=== PATIENT | male | born 1935 | race African-American/Black ===

== ENCOUNTER 2016-08-25 06:29 | Emergency (ER) | payer OTHER ==
[~2016-08-25] VITALS: Ht 188 cm; Wt 131.0 kg
[~2016-08-25 06:29] MED LIST: AMLO10TA80 PO; ASPI-1159 PO; ATOR10TA69 PO; CARV6.2548 PO; CLOP75TA33 PO; FURO20TA4 PO; HYDR-4135 PO; ISOS30TA6 PO; LISI40TA4 PO; TERA5CAP4 PO; WARF5TAB73 PO
[2016-08-25] MEDS ORDERED: DEXT 5% WATER 500 ML IV ONE (07:00)
[2016-08-25 07:27] LABS: BASOPHILS % 0.4 % (0.0-2.0); EOSINOPHILS % 5.5 % (0.0-5.0); HEMATOCRIT. 27.7 % (42.0-52.0); HEMOGLOBIN. 8.9 g/dL (14.0-18.0); LYMPHOCYTES % 22.2 % (20.0-50.0); MEAN CORPUSCULAR HEMOGLOBIN 28.2 pg (28.0-32.0); MEAN CORPUSCULAR VOLUME 87.3 fL (80.0-94.0); MEAN PLATELET VOLUME 8.6 fl (7.4-10.4); MONOCYTES % 7.4 % (2.0-8.0); NEUTROPHILS % 64.5 % (40.0-76.0); PLATELET 240 x1000/uL (130-400); RED BLOOD CELL COUNT 3.17 mill/uL (4.7-6.1); RED CELL DISTRIBUTION WIDTH 16.1 % (11.6-14.6)
[2016-08-25 07:34] LABS: INR 2.7; PARTIAL THROMBOPLASTIN TIME 39.7 sec (24.0-34.0); PROTHROMBIN TIME 27.8 sec
[2016-08-25 07:41] LABS: CARBON DIOXIDE 26 mEq/L (21-32); CHLORIDE 110 mEq/L (98-107); TROPONIN I 0.03 ng/mL (0.00-0.04)
[2016-08-25 08:47] LABS: CLARITY URINE CLEAR (CLEAR); COLOR URINE YELLOW (YELLOW); GLUCOSE URINE NEGATIVE (NEGATIVE); KETONES URINE NEGATIVE (NEGATIVE); LEUKOCYTE ESTERASE URINE TRACE (NEGATIVE); NITRITE URINE NEGATIVE (NEGATIVE); OCCULT BLOOD URINE NEGATIVE (NEGATIVE); PH URINE 5.5 (4.5-8.0); PROTEIN URINE 2+ (NEGATIVE); SPECIFIC GRAVITY URINE 1.016 (1.005-1.030); UROBILINOGEN URINE 0.2 E.U./dL (0.2-1.0)
[2016-08-25 12:43] VITALS: BP 126/81
== END 2016-08-25 13:35 | disposition short-term general hospital (02) ==
LOC: ER 06:30
DX: E11.649 Type 2 diabetes mellitus with hypoglycemia without coma (principal); I10 Essential (primary) hypertension; I44.0 Atrioventricular block, first degree; I49.1 Atrial premature depolarization; I69.354 Hemiplegia and hemiparesis following cerebral infarction affecting left non-dominant side; Z79.84 Long term (current) use of oral hypoglycemic drugs; Z79.01 Long term (current) use of anticoagulants; Z79.82 Long term (current) use of aspirin
CPT/HCPCS: 36415; 71010; 80053; 81001; 82962; 84484; 85025; 85610; 85730; 93005; 96360; 96361; 99285; J7060

== ENCOUNTER 2017-05-03 11:07 | Inpatient (IN) | payer OTHER ==
[2017-05-03] VITALS (8 sets, daily range): BP systolic 132–145; BP diastolic 65–82
[~2017-05-03] VITALS: Ht 182.9 cm; Wt 104.5 kg
[2017-05-03] MEDS ORDERED: SODIUM CHLORIDE 0.9% 1,000 ML IV ONE (11:34)
[2017-05-03] MEDS ORDERED: ONDANSETRON HCL 4MG/2ML VIAL IV ONE (11:45)
[2017-05-03 12:01] LABS: HEMOGLOBIN. 9.7 g/dL (14.0-18.0); MEAN CORPUSCULAR HEMOGLOBIN 29.4 pg (28.0-32.0); MEAN CORPUSCULAR VOLUME 90.5 fL (80.0-94.0); MEAN PLATELET VOLUME 8.8 fl (7.4-10.4); PLATELET 154 x1000/uL (130-400); RED BLOOD CELL COUNT 3.31 mill/uL (4.7-6.1); RED CELL DISTRIBUTION WIDTH 15.4 % (11.6-14.6)
[2017-05-03 12:11] LABS: CHLORIDE 108 mEq/L (98-107)
[2017-05-03 13:01] LABS: KETONES URINE NEGATIVE (NEGATIVE); LEUKOCYTE ESTERASE URINE 3+ (NEGATIVE); NITRITE URINE NEGATIVE (NEGATIVE); OCCULT BLOOD URINE 1+ (NEGATIVE); PH URINE 8.5 (4.5-8.0); PROTEIN URINE 3+ (NEGATIVE); SPECIFIC GRAVITY URINE 1.019 (1.005-1.030)
[2017-05-03 13:12] LABS: CLARITY URINE CLOUDY (CLEAR); COLOR URINE YELLOW (YELLOW)
[2017-05-03] MEDS ORDERED: POTASSIUM CHLORIDE 20MEQ TABLET SR PO ONE (13:15)
[2017-05-03] MEDS ORDERED: ASPIRIN 325MG EC TABLET PO ONE (13:15)
[2017-05-03] MEDS ORDERED: LEVOFLOXACIN 750MG PREMIX 150 ML IV ONE (13:15)
[2017-05-03] MEDS ORDERED: SODIUM CHLORIDE 0.9% 1000ML BAG (SEPSIS BOLUS) IV ONE (13:15)
[2017-05-03 14:11] LABS: PLATELET ESTIMATE NORMAL
[2017-05-03] MEDS ORDERED: diltiazem PO (16:10)
[2017-05-03] MEDS ORDERED: CARV12.545 PO (16:10)
[2017-05-03] MEDS ORDERED: OMEP20TA2 PO (16:10)
[2017-05-03] MEDS ORDERED: GLIP5TAB12 PO (16:13)
[2017-05-03] MEDS ORDERED: ISOS10TA2 GT (16:14)
[2017-05-03] MEDS ORDERED: SODIUM CHLORIDE 0.45% 1,000 ML IV SCH (16:38)
[2017-05-03] MEDS ORDERED: MAGNESIUM/ALUMINUM HYDROXIDE/SIMETHICONE 30ML UDC PO PRN (16:45)
[2017-05-03] MEDS ORDERED: ACETAMINOPHEN 650MG/20.3ML UDC GT PRN (16:45)
[2017-05-03] MEDS ORDERED: ACETAMINOPHEN 325MG TABLET PO PRN (16:45)
[2017-05-03] MEDS ORDERED: IPRATROPIUM/ALBUTEROL 0.5-3(2.5)MG/3ML NEB INH PRN (16:45)
[2017-05-03] MEDS ORDERED: DIPHENHYDRAMINE 50MG/ML VIAL IV PRN (16:45)
[2017-05-03] MEDS ORDERED: NA PHOS,M-B/NA PHOS,DI-BA ENEMA 118ML PR PRN (16:45)
[2017-05-03] MEDS ORDERED: GUAIFENESIN 200MG/10ML SUGAR FREE UDC PO PRN (16:45)
[2017-05-03] MEDS ORDERED: ACETAMINOPHEN 650MG SUPP PR PRN (16:45)
[2017-05-03] MEDS ORDERED: ONDANSETRON HCL 4MG/2ML VIAL IV PRN (16:45)
[2017-05-03] MEDS ORDERED: CLONIDINE 0.1MG TABLET PO PRN (16:45)
[2017-05-03] MEDS ORDERED: DOCUSATE SODIUM 100MG CAPSULE PO PRN (16:45)
[2017-05-03] MEDS ORDERED: HYDROCODONE/ACETAMINOPHEN 5/325MG TABLET PO PRN (16:45)
[2017-05-03] MEDS: INSULIN LISPRO 100 UNITS/ML SUBCUT SCH ×2 (17:20→20:23)
[2017-05-03] MEDS: BLOOD SUGAR DIAGNOSTIC STRIP TEST SCH ×2 (17:42→20:22)
[2017-05-03] MEDS: DEXTROSE 50% WATER 50ML SYRINGE IV PRN ×2 (17:45→21:00)
[2017-05-03] MEDS: DEXT 5%/0.45% NACL 1000ML 1,000 ML IV SCH (20:56)
[2017-05-03] MEDS ORDERED: ENOXAPARIN 40MG/0.4ML SYR SUBCUT SCH (21:00)
[2017-05-03] MEDS ORDERED: SORBITOL 70% SOLN 30ML PO NR (21:00)
[2017-05-03] MEDS ORDERED: ENOXAPARIN 60MG/0.6ML SYR SUBCUT NR (21:30)
[2017-05-03] MEDS ORDERED: CEFTRIAXONE 1 G PREMIX 50 ML IV SCH (22:00)
[2017-05-03 22:23] LABS: PARTIAL THROMBOPLASTIN TIME 65.1 sec (23.4-31.0)
[2017-05-03 22:30] LABS: PROTHROMBIN TIME 93.1 sec (9.4-11.6)
[2017-05-03 22:46] LABS: TROPONIN I 4.6 ng/mL (0.00-0.04)
[2017-05-03] MEDS: SODIUM CHLORIDE 0.9% INJ 3ML FLUSH IVF SCH (23:13)
[2017-05-03] MEDS ORDERED: PHYTONADIONE 10MG/ML AMP SUBCUT NR (23:30)
[2017-05-04] VITALS (15 sets, daily range): BP systolic 100–149; BP diastolic 29–89
[2017-05-04] MEDS: BLOOD SUGAR DIAGNOSTIC STRIP TEST SCH ×4 (06:08→20:04)
[2017-05-04] MEDS: SODIUM CHLORIDE 0.9% INJ 3ML FLUSH IVF SCH ×2 (06:09→13:05)
[2017-05-04 06:45] LABS: BASOPHILS % 0.2 % (0.0-2.0); EOSINOPHILS % 1.5 % (0.0-5.0); HEMATOCRIT. 25.2 % (42.0-52.0); HEMOGLOBIN. 8.9 g/dL (14.0-18.0); LYMPHOCYTES % 8.8 % (20.0-50.0); MEAN CORPUSCULAR HEMOGLOBIN 34.3 pg (28.0-32.0); MEAN CORPUSCULAR VOLUME 97.3 fL (80.0-94.0); NEUTROPHILS % 85.5 % (40.0-76.0); PLATELET 142 x1000/uL (130-400); RED BLOOD CELL COUNT 2.59 mill/uL (4.7-6.1); RED CELL DISTRIBUTION WIDTH 15.6 % (11.6-14.6)
[2017-05-04] MEDS: INSULIN LISPRO 100 UNITS/ML SUBCUT SCH ×3 (07:20→16:56)
[2017-05-04 07:59] LABS: CHLORIDE 109 mEq/L (98-107)
[2017-05-04 08:23] LABS: CREATINE KINASE 203 IU/L (39-308); CREATINE KINASE MB FRACTION 3.8 ng/mL (0.5-3.6); HDL CHOLESTEROL 8 mg/dL (40-59); LDL CHOLESTEROL 36 mg/dL (5-100)
[2017-05-04] MEDS ORDERED: ASPIRIN 81MG EC TABLET PO SCH (09:00)
[2017-05-04] MEDS ORDERED: SORBITOL 70% SOLN 30ML PO NR (10:30)
[2017-05-04] MEDS ORDERED: DOCUSATE SODIUM 250MG CAPSULE PO SCH (10:30)
[2017-05-04] MEDS: DEXT 5%/0.45% NACL 1000ML 1,000 ML IV SCH (12:29)
[2017-05-04 12:44] LABS: PARTIAL THROMBOPLASTIN TIME 63.7 sec (23.4-31.0)
[2017-05-04 12:51] LABS: PROTHROMBIN TIME 97.7 sec (9.4-11.6)
[2017-05-04 13:02] LABS: INR 9.4
[2017-05-04] MEDS ORDERED: PHYTONADIONE 10MG/ML AMP SUBCUT NR (13:15)
[2017-05-04] MEDS ORDERED: POTASSIUM CHLORIDE 20MEQ TABLET SR PO SCH (13:15)
[2017-05-04] MEDS ORDERED: ENOXAPARIN 100MG/ML SYR SUBCUT SCH (21:00)
== END 2017-05-04 20:36 | disposition short-term general hospital (02) | DRG 280 ==
LOC: ER 11:07 → 3WST 13:10 → EDBEDREQ 13:58 → ENRESERV 14:40
PROVIDERS: ADMIT Family Medicine; ATTEND Family Medicine
DX: I21.4 Non-ST elevation (NSTEMI) myocardial infarction (principal); E43 Unspecified severe protein-calorie malnutrition; N17.9 Acute kidney failure, unspecified; N39.0 Urinary tract infection, site not specified; E11.22 Type 2 diabetes mellitus with diabetic chronic kidney disease; E11.649 Type 2 diabetes mellitus with hypoglycemia without coma; I25.10 Atherosclerotic heart disease of native coronary artery without angina pectoris; I13.10 Hypertensive heart and chronic kidney disease without heart failure, with stage 1 through stage 4 chronic kidney disease, or unspecified chronic kidney disease; N18.9 Chronic kidney disease, unspecified; R13.10 Dysphagia, unspecified; Z79.82 Long term (current) use of aspirin; I69.30 Unspecified sequelae of cerebral infarction; I25.2 Old myocardial infarction; Z79.899 Other long term (current) drug therapy
CPT/HCPCS: 36415; 71045; 76700; 80053; 80061; 81003; 82550; 82553; 82962; 83605; 84484; 85025; 85610; 85730; 87040; 87086; 87186; 93005; 96361; 96365; 96375; 99291; J0696; J1650; J1956; J2405; J3430; J3490; J7030; J7050

== ENCOUNTER 2017-05-16 02:59 | Inpatient (IN) | payer OTHER ==
[2017-05-16] VITALS (14 sets, daily range): BP systolic 97–132; BP diastolic 47–71
[~2017-05-16] VITALS: Ht 182.9 cm; Wt 104.4 kg
[~2017-05-16 02:59] MED LIST changes: +CARV12.545 PO; +GLIP5TAB12 PO; +ISOS10TA2 GT; +OMEP20TA2 PO; +WARF-53 PO; -WARF5TAB73 PO; +diltiazem PO
[2017-05-16] MEDS ORDERED: SODIUM CHLORIDE 0.9% 1,000 ML IV ONE (03:40)
[2017-05-16] MEDS ORDERED: ACETAMINOPHEN 325MG TABLET GT STA (03:40)
[2017-05-16] MEDS ORDERED: LEVOFLOXACIN 750MG PREMIX 150 ML IV ONE (03:45)
[2017-05-16 04:09] LABS: HEMATOCRIT. 25.7 % (42.0-52.0); HEMOGLOBIN. 8.5 g/dL (14.0-18.0); MEAN CORPUSCULAR HEMOGLOBIN 29.6 pg (28.0-32.0); MEAN CORPUSCULAR VOLUME 89.5 fL (80.0-94.0); MEAN PLATELET VOLUME 8.5 fl (7.4-10.4); PLATELET 475 x1000/uL (130-400); RED BLOOD CELL COUNT 2.87 mill/uL (4.7-6.1); RED CELL DISTRIBUTION WIDTH 15.4 % (11.6-14.6)
[2017-05-16 04:22] LABS: CHLORIDE 109 mEq/L (98-107)
[2017-05-16 04:41] LABS: ATYPICAL LYMPHOCYTES 1; PLATELET ESTIMATE SLIGHTLY INCREASED
[2017-05-16] MEDS ORDERED: SODIUM CHLORIDE 0.9% 1,000 ML IV SCH (06:33)
[2017-05-16] MEDS ORDERED: ACETAMINOPHEN 650MG/20.3ML UDC GT PRN (08:45)
[2017-05-16] MEDS ORDERED: ACETAMINOPHEN 650MG SUPP PR PRN (08:45)
[2017-05-16] MEDS ORDERED: ONDANSETRON HCL 4MG/2ML VIAL IV PRN (08:45)
[2017-05-16] MEDS ORDERED: LEVOFLOXACIN 500MG PREMIX 100 ML IV SCH (08:45)
[2017-05-16] MEDS ORDERED: MAGNESIUM/ALUMINUM HYDROXIDE/SIMETHICONE 30ML UDC PO PRN (08:45)
[2017-05-16] MEDS ORDERED: DIPHENHYDRAMINE 50MG/ML VIAL IV PRN (08:45)
[2017-05-16] MEDS ORDERED: CLONIDINE 0.1MG TABLET PO PRN (08:45)
[2017-05-16] MEDS ORDERED: ACETAMINOPHEN 325MG TABLET PO PRN (08:45)
[2017-05-16] MEDS ORDERED: ASPIRIN 81MG EC TABLET PO SCH (09:00)
[2017-05-16] MEDS ORDERED: IPRATROPIUM/ALBUTEROL 0.5-3(2.5)MG/3ML NEB HHN NR (10:30)
[2017-05-16] MEDS ORDERED: NA PHOS,M-B/NA PHOS,DI-BA ENEMA 118ML PR PRN (11:00)
[2017-05-16] MEDS ORDERED: IPRATROPIUM/ALBUTEROL 0.5-3(2.5)MG/3ML NEB INH PRN (11:00)
[2017-05-16] MEDS ORDERED: DOCUSATE SODIUM 100MG CAPSULE PO PRN (11:00)
[2017-05-16 12:03] LABS: BG BASE EXCESS -4.5 mmol/L (-2.0-2.0); BG CARBOXYHEMOGLOBIN 0.6 % (0.5-1.5); BG DEOXYHEMOGLOBIN 1.1 % (0.0-5.0); BG FRACTION INSPIRED OXYGEN 30; BG HCO3 ACT 18.5 mmol/L (22.0-26.0); BG METHEMOGLOBIN 0.3 % (0.0-1.5); BG OXYGEN SATURATION 98.9 % (92.0-98.5); BG PCO2 26.8 mmHg (35.0-45.0); BG PH 7.457 (7.350-7.450); BG SAMPLE SITE RIGHT BRACHIAL; BG TOTAL HEMOGLOBIN 8.5 g/dL (12.0-18.0); BG VENT MODE NASAL CANNULA
[2017-05-16] MEDS: CLOPIDOGREL 75MG TABLET PO SCH (12:40)
[2017-05-16] MEDS: ISOSORBIDE DINITRATE 10MG TABLET PO SCH ×2 (12:40→17:00)
[2017-05-16] MEDS: ASPIRIN 81MG TABLET PO SCH (12:40)
[2017-05-16] MEDS: CARVEDILOL 6.25 MG TABLET PO SCH ×2 (12:41→21:19)
[2017-05-16] MEDS: ENOXAPARIN 40MG/0.4ML SYR SUBCUT SCH (12:42)
[2017-05-16 12:55] LABS: D-DIMER 4.44 mg/L FEU (<0.50); INR 1.8; PROTHROMBIN TIME 19.3 sec (9.4-11.6)
[2017-05-16 14:19] LABS: T4 FREE 1.48 ng/dL (0.76-1.46)
[2017-05-16] MEDS: PIPERACILLIN/TAZ 2.25G PREMIX 50 ML IV SCH ×2 (14:54→22:41)
[2017-05-16 15:35] LABS: BASOPHILS % 0.2 % (0.0-2.0); EOSINOPHILS % 0.1 % (0.0-5.0); HEMATOCRIT. 23.2 % (42.0-52.0); HEMOGLOBIN. 7.3 g/dL (14.0-18.0); LYMPHOCYTES % 8.9 % (20.0-50.0); MEAN CORPUSCULAR HEMOGLOBIN 27.6 pg (28.0-32.0); MEAN CORPUSCULAR VOLUME 88.2 fL (80.0-94.0); MONOCYTES % 7.7 % (2.0-8.0); NEUTROPHILS % 83.1 % (40.0-76.0); PLATELET 382 x1000/uL (130-400); RED BLOOD CELL COUNT 2.63 mill/uL (4.7-6.1); RED CELL DISTRIBUTION WIDTH 15.7 % (11.6-14.6)
[2017-05-16 15:39] LABS: CHLORIDE 109 mEq/L (98-107)
[2017-05-16 15:57] LABS: CREATINE KINASE 790 IU/L (39-308); CREATINE KINASE MB FRACTION 62.4 ng/mL (0.5-3.6)
[2017-05-16] MEDS ORDERED: VANCOMYCIN 1 G PREMIX 200 ML IV NR (17:00)
[2017-05-16] MEDS: TERAZOSIN HCL 5MG CAPSULE PO SCH (18:37)
[2017-05-16] MEDS: GLIPIZIDE 5MG TABLET PO SCH (18:37)
[2017-05-16] MEDS: SODIUM CHLORIDE 0.9% INJ 3ML FLUSH IVF SCH ×2 (18:38→21:25)
[2017-05-16 20:12] LABS: CLARITY URINE TURBID (CLEAR); COLOR URINE YELLOW (YELLOW); KETONES URINE TRACE (NEGATIVE); LEUKOCYTE ESTERASE URINE 2+ (NEGATIVE); NITRITE URINE NEGATIVE (NEGATIVE); OCCULT BLOOD URINE 1+ (NEGATIVE); PROTEIN URINE 3+ (NEGATIVE); SPECIFIC GRAVITY URINE 1.021 (1.005-1.030)
[2017-05-16 20:55] LABS: *AMPHETAMINES SCREEN URINE NEGATIVE (NEGATIVE); *BARBITURATES SCREEN URINE NEGATIVE (NEGATIVE); *BENZODIAZEPINES SCREEN URINE NEGATIVE (NEGATIVE); *COCAINE SCREEN URINE NEGATIVE (NEGATIVE); CANNABINOID URINE SCREEN NEGATIVE (NEGATIVE); METHADONE URINE SCREEN NEGATIVE (NEGATIVE); OPIATES URINE SCREEN NEGATIVE (NEGATIVE); PHENCYCLIDINE URINE SCREEN NEGATIVE (NEGATIVE)
[2017-05-16] MEDS ORDERED: DEXTROSE 50% WATER 50ML SYRINGE IV PRN (21:15)
[2017-05-16] MEDS: ATORVASTATIN CALCIUM 10MG TABLET PO SCH (21:19)
[2017-05-16] MEDS: INSULIN LISPRO 100 UNITS/ML SUBCUT SCH (21:24)
[2017-05-16] MEDS: BLOOD SUGAR DIAGNOSTIC STRIP TEST SCH (21:24)
[2017-05-16 23:02] LABS: CREATINE KINASE MB FRACTION 52.2 ng/mL (0.5-3.6)
[2017-05-16 23:26] LABS: BASOPHILS % 0.1 % (0.0-2.0); EOSINOPHILS % 1.8 % (0.0-5.0); HEMOGLOBIN. 7.1 g/dL (14.0-18.0); LYMPHOCYTES % 12.8 % (20.0-50.0); MEAN CORPUSCULAR HEMOGLOBIN 31.4 pg (28.0-32.0); MEAN CORPUSCULAR VOLUME 93.2 fL (80.0-94.0); MEAN PLATELET VOLUME 8.7 fl (7.4-10.4); MONOCYTES % 9.4 % (2.0-8.0); NEUTROPHILS % 75.9 % (40.0-76.0); PLATELET 344 x1000/uL (130-400); RED BLOOD CELL COUNT 2.26 mill/uL (4.7-6.1); RED CELL DISTRIBUTION WIDTH 15.6 % (11.6-14.6)
[2017-05-17] VITALS (43 sets, daily range): BP systolic 106–136; BP diastolic 56–76
[2017-05-17] MEDS ORDERED: LEVOFLOXACIN 250MG PREMIX 50 ML IV SCH (05:00)
[2017-05-17] MEDS: SODIUM CHLORIDE 0.9% INJ 3ML FLUSH IVF SCH ×3 (05:26→22:47)
[2017-05-17] MEDS: PIPERACILLIN/TAZ 2.25G PREMIX 50 ML IV SCH ×2 (05:26→14:28)
[2017-05-17] MEDS: BLOOD SUGAR DIAGNOSTIC STRIP TEST SCH ×4 (07:50→20:15)
[2017-05-17 08:07] LABS: BASOPHILS % 0.6 % (0.0-2.0); EOSINOPHILS % 2.9 % (0.0-5.0); HEMATOCRIT. 24.6 % (42.0-52.0); HEMOGLOBIN. 8.1 g/dL (14.0-18.0); LYMPHOCYTES % 13.2 % (20.0-50.0); MEAN CORPUSCULAR HEMOGLOBIN 29.1 pg (28.0-32.0); MEAN CORPUSCULAR VOLUME 88.3 fL (80.0-94.0); MEAN PLATELET VOLUME 8.9 fl (7.4-10.4); NEUTROPHILS % 75.3 % (40.0-76.0); PLATELET 348 x1000/uL (130-400); RED BLOOD CELL COUNT 2.79 mill/uL (4.7-6.1); RED CELL DISTRIBUTION WIDTH 15.7 % (11.6-14.6)
[2017-05-17 08:19] LABS: CHLORIDE 111 mEq/L (98-107)
[2017-05-17] MEDS: INSULIN LISPRO 100 UNITS/ML SUBCUT SCH ×4 (08:20→20:32)
[2017-05-17 08:31] LABS: HDL CHOLESTEROL 17 mg/dL (40-59); LDL CHOLESTEROL 37 mg/dL (5-100)
[2017-05-17] MEDS: ASPIRIN 81MG TABLET PO SCH ×2 (08:58→09:00)
[2017-05-17] MEDS: GLIPIZIDE 5MG TABLET PO SCH ×2 (08:58→18:51)
[2017-05-17] MEDS: CARVEDILOL 6.25 MG TABLET PO SCH ×3 (08:58→20:13)
[2017-05-17] MEDS: CLOPIDOGREL 75MG TABLET PO SCH ×2 (08:58→09:00)
[2017-05-17] MEDS: ENOXAPARIN 40MG/0.4ML SYR SUBCUT SCH ×2 (08:59→09:00)
[2017-05-17] MEDS: ISOSORBIDE DINITRATE 10MG TABLET PO SCH ×3 (09:00→18:51)
[2017-05-17] MEDS: FLUCONAZOLE 100MG TABLET PO SCH ×2 (10:00→20:14)
[2017-05-17] MEDS: TERAZOSIN HCL 5MG CAPSULE PO SCH (18:51)
[2017-05-17] MEDS ORDERED: PHYTONADIONE 10MG/ML AMP IM NR (19:30)
[2017-05-17] MEDS: ATORVASTATIN CALCIUM 10MG TABLET PO SCH (20:13)
[2017-05-18] VITALS (38 sets, daily range): BP systolic 111–145; BP diastolic 62–83
[2017-05-18] MEDS: PIPERACILLIN/TAZ 2.25G PREMIX 50 ML IV SCH ×3 (01:38→17:51)
[2017-05-18 04:45] LABS: EOSINOPHILS % 3.1 % (0.0-5.0); HEMATOCRIT. 27.3 % (42.0-52.0); HEMOGLOBIN. 9.2 g/dL (14.0-18.0); LYMPHOCYTES % 16.2 % (20.0-50.0); MEAN CORPUSCULAR HEMOGLOBIN 31.2 pg (28.0-32.0); MEAN CORPUSCULAR VOLUME 92.6 fL (80.0-94.0); MEAN PLATELET VOLUME 8.8 fl (7.4-10.4); MONOCYTES % 8.6 % (2.0-8.0); NEUTROPHILS % 71.1 % (40.0-76.0); PLATELET 352 x1000/uL (130-400); RED BLOOD CELL COUNT 2.95 mill/uL (4.7-6.1); RED CELL DISTRIBUTION WIDTH 15.6 % (11.6-14.6)
[2017-05-18 05:11] LABS: INR 1.6; PROTHROMBIN TIME 16.4 sec (9.4-11.6)
[2017-05-18] MEDS: SODIUM CHLORIDE 0.9% INJ 3ML FLUSH IVF SCH ×3 (05:16→22:08)
[2017-05-18] MEDS: BLOOD SUGAR DIAGNOSTIC STRIP TEST SCH ×4 (07:50→21:00)
[2017-05-18] MEDS: INSULIN LISPRO 100 UNITS/ML SUBCUT SCH ×4 (08:20→21:00)
[2017-05-18] MEDS: ENOXAPARIN 40MG/0.4ML SYR SUBCUT SCH (09:00)
[2017-05-18] MEDS: CLOPIDOGREL 75MG TABLET PO SCH ×2 (09:00→14:53)
[2017-05-18] MEDS: ASPIRIN 81MG TABLET PO SCH (09:00)
[2017-05-18 10:30] LABS: CREATINE KINASE MB FRACTION 19.1 ng/mL (0.5-3.6)
[2017-05-18] MEDS: ISOSORBIDE DINITRATE 10MG TABLET PO SCH ×3 (10:38→17:52)
[2017-05-18] MEDS: GLIPIZIDE 5MG TABLET PO SCH ×2 (10:38→17:51)
[2017-05-18] MEDS: FLUCONAZOLE 100MG TABLET PO SCH (10:38)
[2017-05-18] MEDS: CARVEDILOL 6.25 MG TABLET PO SCH ×2 (10:39→21:24)
[2017-05-18] MEDS: GUAIFENESIN 200MG/10ML SUGAR FREE UDC PO PRN (10:39)
[2017-05-18] MEDS: SODIUM CHLORIDE 0.9% 1,000 ML IV SCH (14:27)
[2017-05-18] MEDS: HYDROCODONE/ACETAMINOPHEN 5/325MG TABLET PO PRN (14:28)
[2017-05-18] MEDS: ENOXAPARIN 100MG/ML SYR SUBCUT SCH (14:29)
[2017-05-18] MEDS: TERAZOSIN HCL 5MG CAPSULE PO SCH (17:51)
[2017-05-18] MEDS: ATORVASTATIN CALCIUM 10MG TABLET PO SCH (21:24)
[2017-05-19] VITALS (40 sets, daily range): BP systolic 119–148; BP diastolic 59–82
[2017-05-19] MEDS: PIPERACILLIN/TAZ 2.25G PREMIX 50 ML IV SCH ×3 (01:57→18:06)
[2017-05-19] MEDS: ENOXAPARIN 100MG/ML SYR SUBCUT SCH ×2 (04:04→15:22)
[2017-05-19] MEDS: SODIUM CHLORIDE 0.9% 1,000 ML IV SCH ×2 (04:05→15:23)
[2017-05-19] MEDS: SODIUM CHLORIDE 0.9% INJ 3ML FLUSH IVF SCH ×3 (05:18→20:19)
[2017-05-19 07:18] LABS: BASOPHILS % 0.8 % (0.0-2.0); EOSINOPHILS % 3.4 % (0.0-5.0); HEMATOCRIT. 28.9 % (42.0-52.0); HEMOGLOBIN. 9.8 g/dL (14.0-18.0); LYMPHOCYTES % 19.6 % (20.0-50.0); MEAN CORPUSCULAR HEMOGLOBIN 30.3 pg (28.0-32.0); MEAN CORPUSCULAR VOLUME 89.8 fL (80.0-94.0); MEAN PLATELET VOLUME 9.3 fl (7.4-10.4); MONOCYTES % 8.3 % (2.0-8.0); NEUTROPHILS % 67.9 % (40.0-76.0); PLATELET 315 x1000/uL (130-400); RED BLOOD CELL COUNT 3.22 mill/uL (4.7-6.1); RED CELL DISTRIBUTION WIDTH 15.6 % (11.6-14.6)
[2017-05-19] MEDS: BLOOD SUGAR DIAGNOSTIC STRIP TEST SCH ×4 (07:50→20:15)
[2017-05-19] MEDS: INSULIN LISPRO 100 UNITS/ML SUBCUT SCH ×4 (08:20→20:16)
[2017-05-19] MEDS ORDERED: ASPIRIN 81MG TABLET PO SCH (09:00)
[2017-05-19] MEDS: GLIPIZIDE 5MG TABLET PO SCH ×2 (10:02→18:08)
[2017-05-19] MEDS: CLOPIDOGREL 75MG TABLET PO SCH (10:03)
[2017-05-19] MEDS: CARVEDILOL 6.25 MG TABLET PO SCH ×2 (10:03→20:18)
[2017-05-19] MEDS: ASPIRIN 81MG TABLET PO SCH (10:03)
[2017-05-19] MEDS: ISOSORBIDE DINITRATE 10MG TABLET PO SCH ×3 (10:04→18:08)
[2017-05-19] MEDS ORDERED: PANTOPRAZOLE SODIUM 40 MG/VIAL IV SCH (12:00)
[2017-05-19 12:59] LABS: BG BASE EXCESS -2.8 mmol/L (-2.0-2.0); BG CARBOXYHEMOGLOBIN 0.3 % (0.5-1.5); BG DEOXYHEMOGLOBIN 5.4 % (0.0-5.0); BG FRACTION INSPIRED OXYGEN 21; BG HCO3 ACT 21.1 mmol/L (22.0-26.0); BG METHEMOGLOBIN 0.1 % (0.0-1.5); BG OXYGEN SATURATION 94.6 % (92.0-98.5); BG OXYHEMOGLOBIN 94.2 % (94.0-97.0); BG PH 7.423 (7.350-7.450); BG PO2 73.2 mmHg (75.0-100.0); BG SAMPLE SITE RIGHT RADIAL; BG TOTAL HEMOGLOBIN 9.8 g/dL (12.0-18.0); BG VENT MODE ROOM AIR
[2017-05-19] MEDS: GUAIFENESIN 200MG/10ML SUGAR FREE UDC PO PRN (18:06)
[2017-05-19] MEDS: HYDROCODONE/ACETAMINOPHEN 5/325MG TABLET PO PRN (18:07)
[2017-05-19] MEDS: TERAZOSIN HCL 5MG CAPSULE PO SCH (18:07)
[2017-05-19] MEDS: ATORVASTATIN CALCIUM 10MG TABLET PO SCH (20:18)
== END 2017-05-19 20:45 | disposition short-term general hospital (02) | DRG 871 ==
LOC: ER 02:59 → 6WST 06:35 → ENRESERV 09:05 → 6WST 10:42 → CVICU 17:16
PROVIDERS: ADMIT Family Medicine; ATTEND Family Medicine
PROC: 30233N1 Transfusion of Nonautologous Red Blood Cells into Peripheral Vein, Percutaneous Approach (ICD-10-PCS; principal; 2017-05-17)
DX: A41.9 Sepsis, unspecified organism (principal); I21.4 Non-ST elevation (NSTEMI) myocardial infarction; I26.99 Other pulmonary embolism without acute cor pulmonale; J96.00 Acute respiratory failure, unspecified whether with hypoxia or hypercapnia; I82.402 Acute embolism and thrombosis of unspecified deep veins of left lower extremity; E11.22 Type 2 diabetes mellitus with diabetic chronic kidney disease; D62 Acute posthemorrhagic anemia; D68.9 Coagulation defect, unspecified; I48.92 Unspecified atrial flutter; B37.49 Other urogenital candidiasis; I13.0 Hypertensive heart and chronic kidney disease with heart failure and stage 1 through stage 4 chronic kidney disease, or unspecified chronic kidney disease; I50.30 Unspecified diastolic (congestive) heart failure; I69.354 Hemiplegia and hemiparesis following cerebral infarction affecting left non-dominant side; N39.0 Urinary tract infection, site not specified; J44.9 Chronic obstructive pulmonary disease, unspecified; E66.9 Obesity, unspecified; E78.5 Hyperlipidemia, unspecified; N18.9 Chronic kidney disease, unspecified; Z93.1 Gastrostomy status; Z79.82 Long term (current) use of aspirin; Z79.899 Other long term (current) drug therapy; Z68.31 Body mass index [BMI] 31.0-31.9, adult
CPT/HCPCS: 36415; 36600; 71045; 78580; 80048; 80053; 80061; 80305; 81003; 82375; 82550; 82553; 82805; 82962; 83036; 83605; 83690; 83735; 83880; 84439; 84443; 84484; 85025; 85379; 85610; 86850; 86900; 86920; 87040; 87077; 87086; 87106; 87804; 92610; 93005; 93306; 93970; 96374; 99285; C9113; J1650; J1956; J2543; J3370; J3430; J7030; J7040; J7050; J7620; P9016; A4315

== ENCOUNTER 2017-06-09 12:24 | Emergency (ER) | payer OTHER ==
[~2017-06-09] VITALS: Ht 182.9 cm; Wt 98.0 kg
[2017-06-09 14:21] LABS: KETONES URINE TRACE (NEGATIVE); LEUKOCYTE ESTERASE URINE 2+ (NEGATIVE); NITRITE URINE POSITIVE (NEGATIVE); OCCULT BLOOD URINE 3+ (NEGATIVE); PROTEIN URINE 4+ (NEGATIVE); SPECIFIC GRAVITY URINE 1.027 (1.005-1.030); UROBILINOGEN URINE 0.2 E.U./dL (0.2-1.0)
[2017-06-09 14:21] LABS: BASOPHILS % 0.8 % (0.0-2.0); EOSINOPHILS % 10.2 % (0.0-5.0); HEMATOCRIT. 27.1 % (42.0-52.0); LYMPHOCYTES % 26.7 % (20.0-50.0); MEAN CORPUSCULAR HEMOGLOBIN 29.7 pg (28.0-32.0); MEAN CORPUSCULAR VOLUME 89.8 fL (80.0-94.0); MEAN PLATELET VOLUME 8.2 fl (7.4-10.4); MONOCYTES % 9.1 % (2.0-8.0); NEUTROPHILS % 53.2 % (40.0-76.0); PLATELET 226 x1000/uL (130-400); RED BLOOD CELL COUNT 3.02 mill/uL (4.7-6.1); RED CELL DISTRIBUTION WIDTH 19.6 % (11.6-14.6)
[2017-06-09 14:23] LABS: CLARITY URINE TURBID (CLEAR); COLOR URINE BLOODY (YELLOW)
[2017-06-09 14:28] LABS: CHLORIDE 113 mEq/L (98-107); INR 1.6; PROTHROMBIN TIME 16.6 sec (9.4-11.6)
[2017-06-09] MEDS ORDERED: CEFTRIAXONE 1 G PREMIX 50 ML IV ONE (16:30)
[2017-06-09 17:45] VITALS: BP 153/81
== END 2017-06-09 19:04 | disposition short-term general hospital (02) ==
LOC: ER 12:43
DX: N30.01 Acute cystitis with hematuria (principal); R31.0 Gross hematuria; I11.0 Hypertensive heart disease with heart failure; I50.9 Heart failure, unspecified; J44.9 Chronic obstructive pulmonary disease, unspecified; Z79.84 Long term (current) use of oral hypoglycemic drugs; Z86.73 Personal history of transient ischemic attack (TIA), and cerebral infarction without residual deficits; Z87.891 Personal history of nicotine dependence; Z79.01 Long term (current) use of anticoagulants; Z79.82 Long term (current) use of aspirin
CPT/HCPCS: 36415; 80053; 81003; 85025; 85610; 96365; 99285; J0696

== ENCOUNTER 2017-07-26 00:01 | Emergency (ER) | payer OTHER ==
[~2017-07-26] VITALS: Ht 188 cm; Wt 113.0 kg
[2017-07-26 01:59] LABS: BASOPHILS % 0.7 % (0.0-2.0); HEMATOCRIT. 29.3 % (42.0-52.0); HEMOGLOBIN. 9.4 g/dL (14.0-18.0); LYMPHOCYTES % 26.7 % (20.0-50.0); MEAN CORPUSCULAR HEMOGLOBIN 29.4 pg (28.0-32.0); MEAN CORPUSCULAR VOLUME 91.3 fL (80.0-94.0); MEAN PLATELET VOLUME 8.2 fl (7.4-10.4); MONOCYTES % 7.4 % (2.0-8.0); NEUTROPHILS % 62.2 % (40.0-76.0); PLATELET 304 x1000/uL (130-400); RED BLOOD CELL COUNT 3.21 mill/uL (4.7-6.1); RED CELL DISTRIBUTION WIDTH 18.3 % (11.6-14.6)
[2017-07-26 02:02] LABS: INR 1.6; PROTHROMBIN TIME 16.5 sec (9.4-11.6)
[2017-07-26 02:15] LABS: CHLORIDE 113 mEq/L (98-107)
[2017-07-26] MEDS ORDERED: METHYLPREDNISOLONE SOD SUCC 125 MG/2 ML VIAL IV ONE (03:00)
[2017-07-26] MEDS ORDERED: ALBUTEROL (0.083%) 2.5MG/3ML NEB HHN ONE (03:00)
[2017-07-26 05:00] LABS: CLARITY URINE CLOUDY (CLEAR); COLOR URINE YELLOW (YELLOW); KETONES URINE NEGATIVE (NEGATIVE); LEUKOCYTE ESTERASE URINE 2+ (NEGATIVE); NITRITE URINE NEGATIVE (NEGATIVE); OCCULT BLOOD URINE 2+ (NEGATIVE); PROTEIN URINE 3+ (NEGATIVE); SPECIFIC GRAVITY URINE 1.019 (1.005-1.030)
[2017-07-26] MEDS ORDERED: FUROSEMIDE 40MG/4ML VIAL IVP ONE (05:00)
[2017-07-26] MEDS ORDERED: ASPIRIN 325MG TABLET PO ONE (05:00)
[2017-07-26 07:45] VITALS: BP 147/72
== END 2017-07-26 08:31 | disposition short-term general hospital (02) ==
LOC: ER 00:01 → EDBEDREQ 01:08 → ER 08:31 → CANBEDREQ 09:09
DX: R06.02 Shortness of breath (principal); I11.0 Hypertensive heart disease with heart failure; I50.9 Heart failure, unspecified; E11.9 Type 2 diabetes mellitus without complications; Z86.73 Personal history of transient ischemic attack (TIA), and cerebral infarction without residual deficits; Z79.82 Long term (current) use of aspirin; Z79.01 Long term (current) use of anticoagulants; Z79.84 Long term (current) use of oral hypoglycemic drugs
CPT/HCPCS: 36415; 71045; 80053; 81003; 82962; 83880; 84484; 85025; 85610; 87077; 87086; 87186; 93005; 96374; 96375; 99291; J1940; J2930; J7611